=== PATIENT | female | born 1955 | race Caucasian/White ===

== ENCOUNTER 2019-12-16 18:34 | Emergency (ER) | payer MEDICARE, OTHER ==
[~2019-12-16] VITALS: Ht 157.5 cm; Wt 54.0 kg
--- NOTE | 2019-12-16 18:40 | NUR ---
[id number], STAFF CALLED 911 SAYING THAT "THERE'S FECES IN HER VAGINA", pt to bed 13, -sob, nad noted, vss, pending md cobb
--- NOTE | 2019-12-16 19:10 | NUR ---
dr lange at bedside for eval
[2019-12-16 19:31] LABS: BASOPHILS % (AUTO) 0.4 % (0.0-2.0); EOSINOPHILS % (AUTO) 2.2 % (0.0-6.0); HEMATOCRIT 42 % (33-45); HEMOGLOBIN 13.9 g/dL (11.5-14.8); LYMPHOCYTES # (AUTO) 1.1 /CMM (0.8-4.8); LYMPHOCYTES % (AUTO) 17.3 % (20.0-44.0); MEAN CORPUSCULAR HGB CONC 33 g/dl (31.0-36.0); MEAN CORPUSCULAR VOLUME 98 fL (82-100); MONOCYTES # (AUTO) 0.4 /CMM (0.1-1.30); MONOCYTES % (AUTO) 5.8 % (2.0-12.0); NEUTROPHILS # (AUTO) 4.6 /CMM (1.8-8.9); NEUTROPHILS % (AUTO) 74.3 % (43.0-81.0); PLATELET COUNT (AUTO) 343 /CMM (150-450); RED BLOOD CELL COUNT(AUTO) 4.28 MIL/uL (4.0-5.2); WHITE BLOOD COUNT (AUTO) 6.2 K/uL (4.3-11.0)
[2019-12-16 19:44] LABS: CALCIUM, SERUM 9.3 mg/dL (8.5-10.1); CREATININE 0.9 mg/dL (0.6-1.3); POTASSIUM 4.5 mmol/L (3.5-5.1)
[2019-12-16 20:10] LABS: APPEARANCE,URINE Clear (CLEAR); BILIRUBIN,URINE Negative (NEGATIVE); BLOOD, URINE Negative Ery/uL (NEGATIVE); COLOR,URINE Yellow (YELLOW); KETONES,URINE Negative (NEGATIVE); LEUKOCYTE ESTERASE ,URINE Negative (NEGATIVE); NITRITE, URINE Negative (NEGATIVE); PH,URINE 8.5 (5.0-8.0); PROTEIN,URINE Negative (NEGATIVE); UGLUCOSE Negative (NEGATIVE); UROBILINOGEN,URINE 0.2 EU/dL (0.2)
--- NOTE | 2019-12-16 21:05 | NUR ---
CALLED [facility] ETA 2200 TRIP#[id number]
[2019-12-16 21:36] VITALS: BP 119/47
--- NOTE | 2019-12-16 22:13 | NUR ---
report given to ambulance staff; pt d/c back to facility, pt in stable conditiion, vss, nad noted.
== END 2019-12-16 22:20 | disposition home or self-care (01) ==
LOC: ER 18:41
DX: Q90.9 Down syndrome, unspecified (principal); Z71.1 Person with feared health complaint in whom no diagnosis is made; F03.90 Unspecified dementia, unspecified severity, without behavioral disturbance, psychotic disturbance, mood disturbance, and anxiety
CPT/HCPCS: 36415; 80048-TC; 81000-TC; 85025-TC

== ENCOUNTER 2020-11-23 06:57 | Emergency (ER) | payer MEDICARE, OTHER ==
[~2020-11-23] VITALS: Ht 167.6 cm; Wt 69.4 kg
--- NOTE | 2020-11-23 07:13 | NUR ---
dr lange at bedside for eval.
[2020-11-23] MEDS ORDERED: DIATR MEGLU/DIATRIZOATE SODIUM 30 ML BOTTLE (GASTROGRAPHIN) ONE (08:14)
--- NOTE | 2020-11-23 08:25 | NUR ---
radiology at bedside for abdominal kub.
--- NOTE | 2020-11-23 09:04 | NUR ---
CALLED [facility] FOR [facility]SP[facility] TO [facility]. ETA 1000.
--- NOTE | 2020-11-23 10:17 | NUR ---
transfered back to facility in stable condition.
[2020-11-23 10:18] VITALS: BP 109/57
== END 2020-11-23 10:18 | disposition home or self-care (01) ==
LOC: ER 06:57
DX: K94.23 Gastrostomy malfunction (principal); F03.90 Unspecified dementia, unspecified severity, without behavioral disturbance, psychotic disturbance, mood disturbance, and anxiety; R09.02 Hypoxemia
CPT/HCPCS: 43762; 74018; 99284; Q9963